=== PATIENT | female | born 1950 | race Caucasian/White ===

== ENCOUNTER 2022-10-01 10:54 | Outpatient (CLI) | payer OTHER, SELFPAY ==
--- NOTE | 2022-10-01 10:45 | CRLHL7_ITS ---
For Patients: As a result of the Cures Act, medical imaging exams and procedure reports are released immediately into your electronic medical record. You may view this report before your referring provider. If you have questions, please contact your health care provider. CLINICAL HISTORY: HEADACHES TECHNIQUE: The carotid circulations and the vertebral arteries in the neck were examined with poon-scale ultrasound, color-flow and Doppler spectral analysis. Degrees of stenosis were determined using SRU 2002 Consensus Panel Criteria. FINDINGS: Sonographic images demonstrate bilateral atherosclerotic plaque formation without suspicious soft tissue mass. There was antegrade blood flow demonstrated within the vertebral arteries and the subclavian arteries demonstrated a normal triphasic waveform. The spectral Doppler tracings of the common carotid, internal and external carotid arteries demonstrate no abnormal turbulence or spectral broadening. There was mildly significant elevation of peak systolic blood flow which would indicate a hemodynamically-significant stenosis by SRU criteria within the left distal ICA measuring 139 cm/second. The ICA/CCA peak systolic velocity ratio measures 0.9 on the right and 1.5 on the left. IMPRESSION: 50-69 percent stenosis of the distal left ICA. Less than 50 percent stenosis of the right ICA. Dictated by Abiodun Smith MD @ 10/02/2022 9:40:57 AM (Electronically Signed)
== END 2022-10-01 10:55 | disposition home or self-care (01) ==
PROVIDERS: PCP Physician Assistant Medical; Visit Provider Physician Assistant Medical
DX: R51.9 Headache, unspecified (principal); I66.9 Occlusion and stenosis of unspecified cerebral artery
CPT/HCPCS: 93880

== ENCOUNTER 2022-10-06 14:30 | Outpatient (CLI) | payer OTHER, SELFPAY | END 2022-10-06 14:31 | disposition home or self-care (01) | PROVIDERS: PCP Physician Assistant Medical; Visit Provider Physician Assistant Medical | DX: I65.23 Occlusion and stenosis of bilateral carotid arteries (principal); R73.01 Impaired fasting glucose; Z13.6 Encounter for screening for cardiovascular disorders | CPT/HCPCS: 80053; 80061 ==

== ENCOUNTER 2022-10-07 16:41 | Outpatient (CLI) | payer OTHER, SELFPAY ==
[2022-10-07 17:31] LABS: Hemoglobin A1C* 6.8 % (0-5.6)
== END 2022-10-07 16:42 | disposition home or self-care (01) ==
LOC: LKVREF 16:43
PROVIDERS: PCP Physician Assistant Medical; Visit Provider Physician Assistant Medical
DX: R73.01 Impaired fasting glucose (principal)
CPT/HCPCS: 83036

== ENCOUNTER 2022-12-16 09:45 | Outpatient (RCR) | payer OTHER, SELFPAY | END 2023-02-22 14:48 | disposition home or self-care (01) | PROVIDERS: PCP Physician Assistant Medical; Visit Provider Physician Assistant Medical | DX: M54.2 Cervicalgia (principal); M25.551 Pain in right hip; M54.6 Pain in thoracic spine; V89.2XXA Person injured in unspecified motor-vehicle accident, traffic, initial encounter; Z51.89 Encounter for other specified aftercare | CPT/HCPCS: 97110; 97140; 97161 ==

== ENCOUNTER 2023-02-01 09:49 | Outpatient (CLI) | payer OTHER, SELFPAY | END 2023-02-01 09:50 | disposition home or self-care (01) | LOC: NFLDREF 02-02 13:16 | PROVIDERS: PCP Physician Assistant Medical; Referring Provider Physician Assistant Medical; Visit Provider Physician Assistant Medical | DX: R73.01 Impaired fasting glucose (principal); I65.29 Occlusion and stenosis of unspecified carotid artery; E11.9 Type 2 diabetes mellitus without complications | CPT/HCPCS: 80061; 80076 ==

== ENCOUNTER 2023-08-16 10:15 | Outpatient (CLI) | payer OTHER, SELFPAY | END 2023-08-16 10:16 | disposition home or self-care (01) | LOC: NFLDREF 08-18 13:36 | PROVIDERS: PCP Physician Assistant Medical; Referring Provider Physician Assistant Medical; Visit Provider Physician Assistant Medical | DX: Z00.00 Encounter for general adult medical examination without abnormal findings (principal); E11.9 Type 2 diabetes mellitus without complications; I65.29 Occlusion and stenosis of unspecified carotid artery; R73.01 Impaired fasting glucose; J45.909 Unspecified asthma, uncomplicated; K21.9 Gastro-esophageal reflux disease without esophagitis; G89.29 Other chronic pain; Z13.820 Encounter for screening for osteoporosis; Z13.6 Encounter for screening for cardiovascular disorders | CPT/HCPCS: 80053; 80061; 82043; 82570; 82607; 84443 ==

== ENCOUNTER 2023-08-23 13:30 | Outpatient (CLI) | payer OTHER, SELFPAY ==
--- NOTE | 2023-08-23 14:00 | CRLHL7_ITS ---
For Patients: As a result of the Cures Act, medical imaging exams and procedure reports are released immediately into your electronic medical record. You may view this report before your referring provider. If you have questions, please contact your health care provider. Examination: US abdominal aorta Indication: Abdominal aortic aneurysm screening. Technique: Villa scale and color Doppler images of the aorta and common iliac arteries are obtained. Comparison: None Findings: Proximal aorta: 2.4 x 2.1 cm Mid aorta: 1.9 x 1.9 cm Distal aorta: 1.7 x 1.8 cm Right common iliac artery: 1.1 x 1.2 cm Left common iliac artery: 1.1 x 1.1 cm Impression: No abdominal aortic aneurysm. Dictated by Abiodun Smith MD @ 08/25/2023 6:27:46 AM (Electronically Signed)
--- NOTE | 2023-08-23 14:00 | CRLHL7_ITS ---
For Patients: As a result of the Cures Act, medical imaging exams and procedure reports are released immediately into your electronic medical record. You may view this report before your referring provider. If you have questions, please contact your health care provider. CLINICAL HISTORY: Left neck pain Comparison 10/01/2022 TECHNIQUE: The carotid circulations and the vertebral arteries in the neck were examined with poon-scale ultrasound, color-flow and Doppler spectral analysis. Degrees of stenosis were determined using SRU 2002 Consensus Panel Criteria. FINDINGS: Sonographic images demonstrate bilateral atherosclerotic plaque formation without suspicious soft tissue mass. There was antegrade blood flow demonstrated within the vertebral arteries and the subclavian arteries demonstrated a normal triphasic waveform. The spectral Doppler tracings of the common carotid, internal and external carotid arteries demonstrate abnormal turbulence or spectral broadening within the distal ICA bilaterally. There was significant elevation of peak systolic blood flow within the right distal ICA measuring 142 cm/second and within the distal left ICA measuring 165 cm/second which would indicate a hemodynamically-significant stenosis by SRU criteria. The ICA/CCA peak systolic velocity ratio measures 1.8 on the right and 2.0 on the left. IMPRESSION: 50-69 percent stenosis of the distal ICAs bilaterally. Velocities have increased since the prior study. Dictated by Abiodun Smith MD @ 08/25/2023 6:30:31 AM (Electronically Signed)
== END 2023-08-23 13:31 | disposition home or self-care (01) ==
LOC: US 13:31
PROVIDERS: PCP Physician Assistant Medical; Visit Provider Physician Assistant Medical
DX: I65.23 Occlusion and stenosis of bilateral carotid arteries (principal); M54.2 Cervicalgia; Z13.6 Encounter for screening for cardiovascular disorders
CPT/HCPCS: 76706; 93880

== ENCOUNTER 2023-09-09 09:46 | Outpatient (CLI) | payer OTHER, SELFPAY ==
--- NOTE | 2023-09-09 11:36 | W.ANESCHARGE ---
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
== END 2023-09-09 09:47 | disposition home or self-care (01) ==
LOC: OP CLINIC 09:48
PROVIDERS: PCP Physician Assistant Medical; Visit Provider Surgery
DX: Z12.11 Encounter for screening for malignant neoplasm of colon (principal); K63.5 Polyp of colon; K64.8 Other hemorrhoids; K31.7 Polyp of stomach and duodenum; K21.9 Gastro-esophageal reflux disease without esophagitis
CPT/HCPCS: 00813; 43239; 45385; 88305; 99100; J2704; J3490

== ENCOUNTER 2023-11-11 14:16 | Outpatient (CLI) | payer OTHER, SELFPAY ==
--- NOTE | 2023-11-11 14:00 | CRLHL7_ITS ---
For Patients: As a result of the Century Cures Act, medical imaging exams and procedure reports are released immediately into your electronic medical record. You may view this report before your referring provider. If you have questions, please contact your health care provider. BILATERAL SCREENING MAMMOGRAM WITH COMPUTER-AIDED DETECTION AND TOMOSYNTHESIS TECHNIQUE: CC and MLO views were obtained. These mammographic images have been obtained using full-field digital technique. These mammographic images were interpreted with the benefit of computer-aided detection. Breast Tomosynthesis was used in this interpretation. COMPARISON FILM: 07/31/19, 06/25/17. FINDINGS: There are scattered areas of fibroglandular density IMPRESSION: There is no radiographic evidence for malignancy. ASSESSMENT: BI-RADS Category 1: Negative RECOMMENDATION: Routine screening mammogram in 1 year. A lay language report of this examination will be provided to the patient. Abiodun Smith M.D. Diagnostic Radiologist [email or web address] AMALIA/Dictated by: Abiodun Smith MD @ 11/12/2023 12:59:00 PM (Electronically Signed)
== END 2023-11-11 14:17 | disposition home or self-care (01) ==
PROVIDERS: PCP Physician Assistant Medical; Visit Provider Physician Assistant Medical
DX: Z12.31 Encounter for screening mammogram for malignant neoplasm of breast (principal)
CPT/HCPCS: 77063; 77067

== ENCOUNTER 2024-08-09 13:46 | Outpatient (CLI) | payer OTHER, SELFPAY ==
--- NOTE | 2024-08-09 14:30 | CRLHL7_ITS ---
For Patients: As a result of the Century Cures Act, medical imaging exams and procedure reports are released immediately into your electronic medical record. You may view this report before your referring provider. If you have questions, please contact your health care provider. DXA BONE MINERAL DENSITY STUDY Current height (in): 65.5. Weight (lb): 164.0. Menopause age: 61. Ethnicity: White. Reason for exam: Osteoporosis. 1. Have you had a previous hip or vertebral fracture? No. 2. Have you had any fractures during your adult life which did not result from significant trauma (e.g., auto accident)? No. 3. Did either of your parents have a hip fracture? No. 4. Do you smoke? No. 5. Have you ever taken Glucocorticoids? No. 6. Do you have rheumatoid arthritis? No. 7. Do you have secondary osteoporosis? No. 8. Do you drink 3 or more alcoholic drinks per day? No. 9. Are you being treated for osteoporosis? No. 10. Have you ever taken any of the following medications: Actonel, Evista, Fosamax, Miacalcin, Reclast, Boniva, Forteo, HRT (i.e. estrogen/hormone therapy), Protelos, Prolia, Vitamin D, Calcium, other ??? please specify. ANSWER: Yes, vitamin D. 11. Do you have any of the following medical conditions: Anorexia or bulimia, asthma or emphysema, end stage renal disease, hyperparathyroidism, any seizure disorders, cancer, inflammatory bowel diseases, hysterectomy, other ??? please specify. ANSWER: No. 12. What was your maximum height (inches)? 66. 13. Do you perform weight bearing exercise regularly? No. 14. Do you regularly consume dairy products? Yes. 15. Do you drink caffeinated beverages? No. 16. At what age did your period start? 16.5. 17. Are you premenopausal? No. 18. How many full-term pregnancies have you had? 1. 19. Have you ever missed your period for more than 6 months in a row (not including or menopause)? Not provided. TECHNIQUE: Bone mineral density study was performed using the [employer]. FINDINGS: The results of the study expressed as bone mineral density (BMD) are as follows: Lumbar spine L1 to L4: BMD: 0.754 g/cm2. T-score: -2.7. Z-score: -0.4 Neck Left: BMD: 0.542 g/cm2. T-score: -2.8. Z-score: -0.8 Right: BMD: 0.513 g/cm2. T-score: -3.0. Z-score: -1.1 Total Left: BMD: 0.667 g/cm2. T-score: -2.3. Z-score: -0.6 Right: BMD: 0.642 g/cm2. T-score: -2.5. Z-score: -0.8 IMPRESSION: Osteoporosis. El Reddy M.D. Body/Diagnostic Radiologist [email or web address] Transcribed: 1:55 pm DW/Dictated by: El Reddy MD @ 08/10/2024 1:14:00 PM (Electronically Signed)
== END 2024-08-09 13:47 | disposition home or self-care (01) ==
PROVIDERS: PCP Physician Assistant Medical; Visit Provider Physician Assistant Medical
DX: M81.0 Age-related osteoporosis without current pathological fracture (principal)
CPT/HCPCS: 77080